=== PATIENT | male | born 1995 | race Caucasian/White ===

== ENCOUNTER 2021-08-09 14:44 | Emergency (ER) | payer SELFPAY ==
[2021-08-09 14:50] VITALS: BP 130/80; PULSE 73; RESP 16; TEMP 36.8; O2SAT 100
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
== END 2021-08-09 16:00 | disposition home or self-care (01) ==
PROVIDERS: Emergency Provider Nurse Practitioner
DX: S01.511A Laceration without foreign body of lip, initial encounter (principal); W50.0XXA Accidental hit or strike by another person, initial encounter
CPT/HCPCS: 99213; G0463

== ENCOUNTER 2021-10-05 12:37 | Emergency (ER) | payer OTHER, SELFPAY ==
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
[2021-10-05 12:46] VITALS: BP 142/86; PULSE 78; RESP 18; TEMP 37; O2SAT 100
[2021-10-05 12:52] VITALS: BP 142/86; PULSE 78; RESP 18; TEMP 37; O2SAT 100
== END 2021-10-05 13:40 | disposition home or self-care (01) ==
PROVIDERS: Emergency Provider Nurse Practitioner Family
DX: S39.012A Strain of muscle, fascia and tendon of lower back, initial encounter (principal); V86.06XA Driver of dirt bike or motor/cross bike injured in traffic accident, initial encounter
CPT/HCPCS: 72110; 72170; 99213; G0463

== ENCOUNTER 2021-10-17 09:02 | Emergency (ER) | payer OTHER, SELFPAY ==
[2021-10-17 09:18] VITALS: BP 122/79; PULSE 60; RESP 16; TEMP 36.9; O2SAT 98
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
== END 2021-10-17 09:45 | disposition home or self-care (01) ==
PROVIDERS: Emergency Provider Registered Nurse; PCP Internal Medicine
DX: J02.0 Streptococcal pharyngitis (principal); F17.290 Nicotine dependence, other tobacco product, uncomplicated
CPT/HCPCS: 87880; 99213; G0463

== ENCOUNTER 2022-03-21 14:51 | Outpatient (CLI) | payer OTHER, SELFPAY ==
[2022-03-23 13:15] LABS: Semen Color Opaque (Grey-opaque); Semen Immotility 50 %; Semen Non-Progressive Motility 10 %; Semen Progressive Motility 40 % (>32); Semen Total Motility 50 (>40% (PM+NP)); Semen Viscosity Increased (Not Increa.); Sperm Count 14.3 Mil/mL (60-150 million/mL); pH Semen 8.5 (7.2-8.0)
[2022-03-23 13:16] LABS: Semen Morphology Result to Follow
[2022-03-26 18:31] LABS: Fructose, Semen 289 mg/dL (150-600)
== END 2022-03-21 14:52 | disposition home or self-care (01) ==
LOC: CHSLAB 14:54
PROVIDERS: PCP Obstetrics & Gynecology; Visit Provider Obstetrics & Gynecology
DX: N46.9 Male infertility, unspecified (principal)
CPT/HCPCS: 82757; 88160; 89320

== ENCOUNTER 2022-05-19 11:15 | Emergency (ER) | payer OTHER, SELFPAY ==
--- NOTE | ~2022-05-19 | XR_ITS ---
EXAMINATION: XR lumbar spine 2-3V DATE: 05/19/2022 12:10 INDICATION: Low back pain TECHNIQUE: Anteroposterior and lateral views of the lumbar spine, and cone-down lateral view of the l umbosacral junction were obtained. COMPARISON: None. FINDINGS: There are 5 mm of anterolisthesis of L5 on S1 which appears to be related to bilateral pars defects. No fracture is identified. The vertebral body heights are normal. There is mild loss of int ervertebral disc space height at L5-S1. IMPRESSION: 1. Grade 1 anterolisthesis of L5 on S1 which appears to be related to bilateral pars defects. No acut e findings. Reviewed, dictated and finalized at location B. IMPRESSION: 1. Grade 1 anterolisthesis of L5 on S1 which appears to be related to bilateral pars defects. No acute findings.
[2022-05-19 11:25] VITALS: BP 123/73; PULSE 71; RESP 18; TEMP 37.1; O2SAT 98
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
== END 2022-05-19 12:35 | disposition home or self-care (01) ==
PROVIDERS: Emergency Provider Registered Nurse; PCP Internal Medicine
DX: S39.012A Strain of muscle, fascia and tendon of lower back, initial encounter (principal); F17.290 Nicotine dependence, other tobacco product, uncomplicated; X58.XXXA Exposure to other specified factors, initial encounter
CPT/HCPCS: 72100; 99213; G0463

== ENCOUNTER 2022-06-01 19:18 | Emergency (ER) | payer OTHER, SELFPAY ==
[2022-06-01 19:24] VITALS: BP 140/86; PULSE 72; RESP 18; TEMP 36.9; O2SAT 100
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
== END 2022-06-01 20:13 | disposition home or self-care (01) ==
PROVIDERS: Emergency Provider Nurse Practitioner; PCP Internal Medicine
DX: H61.22 Impacted cerumen, left ear (principal); F17.290 Nicotine dependence, other tobacco product, uncomplicated; Z85.47 Personal history of malignant neoplasm of testis; Z90.79 Acquired absence of other genital organ(s)
CPT/HCPCS: 69210; 99212; A9270; G0463

== ENCOUNTER 2022-08-06 12:46 | Emergency (ER) | payer OTHER, SELFPAY ==
[2022-08-06 12:52] VITALS: BP 112/75; PULSE 70; RESP 16; TEMP 36.8; O2SAT 99
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
== END 2022-08-06 13:39 | disposition left against medical advice (07) ==
PROVIDERS: Emergency Provider Nurse Practitioner Family; PCP Internal Medicine
DX: E86.0 Dehydration (principal); Z85.47 Personal history of malignant neoplasm of testis; F17.290 Nicotine dependence, other tobacco product, uncomplicated; Z53.29 Procedure and treatment not carried out because of patient's decision for other reasons
CPT/HCPCS: 81003; 99212; G0463

== ENCOUNTER 2022-08-13 16:12 | Emergency (ER) | payer OTHER, SELFPAY ==
--- NOTE | ~2022-08-13 | XR_ITS ---
EXAMINATION: XR finger 3rd RT min 2V INDICATION: Left third finger pain TECHNIQUE: Three views of the left third finger are obtained. COMPARISON: None available FINDINGS: There is soft tissue swelling the finger. Bone alignment is normal. The joint spaces are ma intained. There is no fracture IMPRESSION: 1. Soft tissue swelling without acute osseous abnormality. 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
[2022-08-13 16:22] VITALS: BP 123/78; PULSE 77; RESP 16; TEMP 37.3; O2SAT 95
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
== END 2022-08-13 17:17 | disposition home or self-care (01) ==
PROVIDERS: Emergency Provider Nurse Practitioner; PCP Internal Medicine
DX: S60.031A Contusion of right middle finger without damage to nail, initial encounter (principal); X58.XXXA Exposure to other specified factors, initial encounter; F17.290 Nicotine dependence, other tobacco product, uncomplicated; Z85.47 Personal history of malignant neoplasm of testis
CPT/HCPCS: 73140; 99213; G0463

== ENCOUNTER 2023-12-22 12:03 | Emergency (ER) | payer MEDICAID, SELFPAY ==
[2023-12-22 12:09] VITALS: BP 139/89; PULSE 66; RESP 16; TEMP 36.9; O2SAT 100
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
[2023-12-22 20:07] LABS: Trichomonas Vag PCR NOT DETECTED (NOT DETECTE)
[2023-12-22 20:30] LABS: Chlamydia trachomatis NOT DETECTED (NOT DETECTE); Neisseria gonorrhoeae PCR NOT DETECTED (NOT DETECTE)
== END 2023-12-22 14:02 | disposition home or self-care (01) ==
PROVIDERS: Emergency Provider Registered Nurse; PCP Internal Medicine
DX: N48.89 Other specified disorders of penis (principal); Z11.3 Encounter for screening for infections with a predominantly sexual mode of transmission; F17.290 Nicotine dependence, other tobacco product, uncomplicated
CPT/HCPCS: 81003; 87491; 87591; 87661; 99213; G0463

== ENCOUNTER 2024-09-30 13:21 | Emergency (ER) | payer OTHER, SELFPAY ==
[2024-09-30 13:24] VITALS: BP 124/86; PULSE 68; RESP 18; TEMP 36.6; O2SAT 100
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
== END 2024-09-30 13:48 | disposition home or self-care (01) ==
PROVIDERS: Emergency Provider Nurse Practitioner; PCP Internal Medicine
DX: B86 Scabies (principal); F17.290 Nicotine dependence, other tobacco product, uncomplicated; Z85.47 Personal history of malignant neoplasm of testis; Z90.79 Acquired absence of other genital organ(s)
CPT/HCPCS: 99213; G0463